=== PATIENT | male | born 1935 | race Caucasian/White ===

== ENCOUNTER 2019-04-14 09:31 | Inpatient (IN) | payer BC ==
[~2019-04-14 09:31] MED LIST: CEFAZOLIN 2 Gram 2 GM/50 ML BAG IVPB ONE; FAMOTIDINE 20MG TABLET PO ONE; MECLIZINE 25 MG TABLET PO ONE; METOCLOPRAMIDE 10 MG TABLET PO ONE; VANCOMYCIN 1GM/200ML PREMIX 1 GM/200 ML PIGGYBACK IVPB ONE
[2019-04-14] MEDS ORDERED: RINGERS SOLUTION,LACTATED 1,000 ML IV ONE (11:39)
[2019-04-14 11:41] LABS: ABO GROUP A; ANTIBODY SCREEN NEGATIVE (NEGATIVE); RH TYPE POSITIVE
[2019-04-14] MEDS ORDERED: BUPIVACAINE 0.5% W/EPI MPF 30 ML VIAL SQ ONE (15:15)
[2019-04-14] MEDS ORDERED: GABAPENTIN 300 MG CAPSULE PO PRN (15:39)
[2019-04-14] MEDS ORDERED: DEXAMETHASONE 4 MG/ML 1ML VIAL IVP ONE (15:55)
[2019-04-14] MEDS ORDERED: ROPIVACAINE HCL (NAROPIN) /PF 5MG/ML 20ML VIAL IV ONE (15:55)
[2019-04-14] MEDS ORDERED: 0.9 % SODIUM CHLORIDE 10 ML VIAL IVP ONE (15:55)
[2019-04-14] MEDS ORDERED: TRAMADOL HCL 50 MG TABLET PO PRN (16:16)
[2019-04-14] MEDS ORDERED: BISACODYL 10 MG SUPP RC PRN (16:16)
[2019-04-14] MEDS ORDERED: ACETAMINOPHEN 325 MG TAB PO PRN (16:16)
[2019-04-14] MEDS ORDERED: AL HYDROX/MAG HYDROX 30ML UD PO PRN (16:16)
[2019-04-14] MEDS ORDERED: ONDANSETRON HCL IV 4 MG/2 ML VIAL IVP PRN (16:16)
[2019-04-14] MEDS ORDERED: NALOXONE 0.4 MG/1 ML VIAL IVP PRN (16:16)
[2019-04-14] MEDS ORDERED: KETOROLAC 30 MG/ML VIAL IVP PRN ×2 (16:16)
[2019-04-14] MEDS ORDERED: ZOLPIDEM TARTRATE 5 MG TABLET PO PRN (16:16)
[2019-04-14] MEDS ORDERED: MAGNESIUM HYDROXIDE 30 ML UDC PO PRN (16:16)
[2019-04-14] MEDS ORDERED: ACETAMINOPHEN W/ CODEINE 300MG/60MG TABLET PO PRN ×2 (16:16)
[2019-04-14] MEDS ORDERED: DIPHENHYDRAMINE HCL 25 MG CAPSULE PO PRN (16:16)
[2019-04-14] MEDS: POTASSIUM CHLORIDE/D5-0.9%NACL 20 MEQ/1,000 ML BAG IV SCH (17:05)
[2019-04-14] MEDS: HYDROCODONE/APAP 10/325 TABLET PO PRN (18:03)
[2019-04-14] MEDS: HYDROMORPHONE HCL 2 MG/ML VIAL IM PRN ×2 (18:36→19:27)
[2019-04-14] MEDS: WIXELA INH SCH (21:14)
[2019-04-14] MEDS: DOCUSATE SODIUM 100 MG CAPSULE PO SCH (21:14)
[2019-04-14] MEDS: CEFAZOLIN 2 Gram 2 GM/50 ML BAG IVPB SCH (22:32)
[2019-04-15] MEDS: POTASSIUM CHLORIDE/D5-0.9%NACL 20 MEQ/1,000 ML BAG IV SCH ×2 (01:37→10:24)
[2019-04-15] MEDS: HYDROCODONE/APAP 10/325 TABLET PO PRN ×4 (01:47→11:52)
[2019-04-15] MEDS: CEFAZOLIN 2 Gram 2 GM/50 ML BAG IVPB SCH ×2 (06:02→11:49)
[2019-04-15 06:50] LABS: HEMATOCRIT 33.1 % (42.0-52.0); HEMOGLOBIN 10.4 gm/dl (14.0-18.0)
[2019-04-15] MEDS ORDERED: PATIENT OWN MED: OMEPRAZOLE 20 MG PO SCH (07:00)
[2019-04-15 07:06] LABS: BLOOD UREA NITROGEN 16 mg/dL (8-23); CREATININE 0.6 mg/dL (0.7-1.2); EST GLOMERULAR FILTRATION RATE > 60 mL/min; GLUCOSE,RANDOM 155 mg/dL (74-109)
[2019-04-15] MEDS ORDERED: PATIENT OWN MED: ESCITALOPRAM 20 MG PO SCH (10:00)
[2019-04-15] MEDS ORDERED: FERROUS SULFATE 325 MG TAB PO SCH (10:00)
[2019-04-15] MEDS ORDERED: RIVAROXABAN 10 MG TABLET PO SCH (10:00)
[2019-04-15] MEDS ORDERED: PATIENT OWN MED: AMLODIPINE 10 MG PO SCH (10:00)
[2019-04-15] MEDS ORDERED: RAPAFLO 8 MG PO SCH (10:00)
--- NOTE | 2019-04-15 10:26 | Rehab Evaluation ---
Patient Information - Patient Information Diagnosis: L hip OA Ordered Treatment: OT Evaluate and Treat Status: Initial Evaluation Surgery: Yes (L MARVIN) Date of Surgery: 04/14/19 Past Medical/Surgical Hx: PAST MEDICAL/SURGICAL HISTORY Past Surgical History BILAT SHOULDER SX RTHA C SCOPES BILAT CATS PMH - Respiratory Hx Respiratory Disorders Yes Hx Asthma Yes: GOOD CONTROL WITH ADVAIR Hx Bronchitis Yes: NOTHING RECENT Hx Pneumonia Yes: Hx Sleep Apnea Yes Hx of CPAP Yes PMH - Cardiovascular Hx Cardiovascular Disorders Yes Hx Edema Yes: BILAT LE Hx Hypertension Yes: CONTROLLED WITH MEDS Exercise Tolerance Good PMH - Neuro Hx Neurological Disorders No PMH - GI Hx Gastrointestinal Disorders Yes Hx Gastroesophageal Reflux Yes: ON MEDS WITH GOOD CONTROL PMH - Hx Genitourinary Disorders Yes Hx Bladder Problem Yes: OVER ACTIVE BLADDER Hx Prostate Problems Yes: BPH PMH - Endocrine Hx Endocrine Disorders No PMH - Musculoskeletal Hx Musculoskeletal Disorders Yes Hx Arthritis Yes: LEFT HIP, BACK AND SHOULDERS PMH - Psych Hx Psychiatric Problems Yes Hx Anxiety Yes Hx Depression Yes PMH - Hematology/Oncology Hx Hematology/Oncology Yes Disorders Hx Bruising Yes: BRUISES EASILY Premorbid Status: Detail (Prior to surgery, the patient was independent with all ADLs and functional mobility.) Social History: Detail (The patient lives with his in a 2-story home with 1 step at the entrance and no hand-rail. His bedroom and bathroom are on the main level and he has no need to negotiate stairs to second floor. The bathroom is equipped with a walk-in shower, shower bench, and a raised toilet seat. There are no grab bars in the bathroom. He has a standard walker and a 4WW and plans to purchase a scraper loader operator prior to DCing today.) Precautions: [place], Fall, Other (WBAT L LE, posterior hip precautions) - Time With Patient Total Time Spent With Patient (Min): 25 (1 eval, 1 ADL) Treatment Procedures: Detail (OT eval: low complexity) Subjective Information - Subjective Information Per Patient (Ok to see per AARON Roa. Pt agreeable to OT eval and Tx, spouse present.) Objective Data - Pain Pain Present: No Pain Scale Used: Numeric (1 - 10) (0/10, reports he feels less pain than prior to Sx) - Mental Status Patient Orientation: Oriented x3 - Visual Perception Appears within normal limits for therapeutic activities - ROM Within normal limits (B UEs) - Strength/Tone Within normal limits (B UEs) - Coordination Appears within normal limits for therapeutic activities - Transfers Independent (Sit to/from stand from bedside chair to walker with initial verbal instruction to maintain hip precautions when sitting, progressing to MOD I with walker.) - Balance Balance Sitting: Good Balance Standing: Good (Good- during standing pant mgmt) - Sensation Intact - Gait Detail (Functional mobility within bedroom with FWW, tolerated well, no safety concerns.) - ADL's/IADL's Detail (Pt initially verbalizes 2/3 hip precautions, verbalizes 3/3 at end of session. OT educated Pt on modified technique to don pants with scraper loader operator, Pt demos good follow through. Declines education on sock aide, reporting his will assist as needed. Pt dons slip-on shoes independently. OT educated Pt on modified techniques for kitchen and bathroom safety, Pt verbalizes understanding.) Therapy Assessment - Therapy Assessment Detail (Pt tolerates eval well, demos safety awareness of hip precautions and MOD I with LB dressing. Verbalizes safe technique for home tasks with good safety awareness. No concerns re: home DC with .) Patient Education - Patient Education Teaching Topic: Equipment Use, Precautions Response: Return Demonstration, Reinforcement Needed, Verbalize Understanding Teaching Method: Discussion, Demonstration Teaching Recipient: Patient Barriers To Learning: None Problem List - Problem List Occupational Therapy Problem List: Detail (No further skilled IP OT needs identified.) Goals - Goals Occupational Therapy Goals: No further skilled IP OT needs/goals identified. Prognosis - Prognosis Good Plan - Plan Occupational Therapy Plan: No further skilled IP OT needs identified, [place] OT services. Thank you for this referral.
[2019-04-15] MEDS: WIXELA INH SCH (10:29)
[2019-04-15] MEDS: DOCUSATE SODIUM 100 MG CAPSULE PO SCH (10:32)
--- NOTE | 2019-04-15 11:39 | Rehab Evaluation ---
Patient Information - Patient Information Diagnosis: L hip OA Ordered Treatment: PT Evaluate and Treat Status: Initial Evaluation Surgery: Yes (L MARVIN) Date of Surgery: 04/14/19 Past Medical/Surgical Hx: PAST MEDICAL/SURGICAL HISTORY Past Surgical History BILAT SHOULDER SX RTHA C SCOPES BILAT CATS PMH - Respiratory Hx Respiratory Disorders Yes Hx Asthma Yes: GOOD CONTROL WITH ADVAIR Hx Bronchitis Yes: NOTHING RECENT Hx Pneumonia Yes: Hx Sleep Apnea Yes Hx of CPAP Yes PMH - Cardiovascular Hx Cardiovascular Disorders Yes Hx Edema Yes: BILAT LE Hx Hypertension Yes: CONTROLLED WITH MEDS Exercise Tolerance Good PMH - Neuro Hx Neurological Disorders No PMH - GI Hx Gastrointestinal Disorders Yes Hx Gastroesophageal Reflux Yes: ON MEDS WITH GOOD CONTROL PMH - Hx Genitourinary Disorders Yes Hx Bladder Problem Yes: OVER ACTIVE BLADDER Hx Prostate Problems Yes: BPH PMH - Endocrine Hx Endocrine Disorders No PMH - Musculoskeletal Hx Musculoskeletal Disorders Yes Hx Arthritis Yes: LEFT HIP, BACK AND SHOULDERS PMH - Psych Hx Psychiatric Problems Yes Hx Anxiety Yes Hx Depression Yes PMH - Hematology/Oncology Hx Hematology/Oncology Yes Disorders Hx Bruising Yes: BRUISES EASILY Premorbid Status: Detail (Prior to surgery, the patient was independent with all ADLs and functional mobility.) Social History: Detail (The patient lives with his in a 2-story home with 1 step at the entrance and no hand-rail. His bedroom and bathroom are on the main level and he has no need to negotiate stairs to second floor. The bathroom is equipped with a walk-in shower, shower bench, and a raised toilet seat. There are no grab bars in the bathroom. He has a standard walker and a 4WW and plans to purchase a heel caser prior to DCing today.) Precautions: [place], Fall, Other (WBAT L LE, posterior hip precautions) - Time With Patient Total Time Spent With Patient (Min): 30 Treatment Procedures: Detail (Initial Evaluation low complexity, gait training) Subjective Information - Subjective Information Per Patient (The patient had minimal complaints of pain in L hip but di not rate pain using 0-10 pain scale.) Objective Data - Mental Status Patient Orientation: Oriented x3 - Visual Perception Appears within normal limits for therapeutic activities - ROM Not within normal limits (The patient's L hip ROM is within THR precautions. All other LE AROMis WNL.) - Strength/Tone Not within normal limits (The patient's LE strength was not tested s/p surgery however is functional.) - Bed Mobility Independent (The patient was up in chair when PT arrived but did not report difficulty with supine to and from sit transfer.) - Transfers Independent (The patient was independent with sit to and stand transfer.) - Balance Balance Sitting: Good Balance Standing: Good - Sensation Intact - Gait Detail (The patient ambulated with standard walker WBAT on the L LE a distance of 100 feet x 1 independently. The patient ambulated on 3 steps with use of folded walker and one railing with supervision for safety only.) Therapy Assessment - Therapy Assessment Detail (The patient was independent with bed mobility, transfers and ambulation. The patient has met all inpt. PT goals.) Patient Education - Patient Education Teaching Topic: Exercise/Activity ( Thefollowing THR exercises were reviewed including: ankle pumps, hip abduction, heelslides, gluteal sets,quad and hamstring sets.), Precautions (The patient demonstrated good understanding and use of THR precautions.) Response: Return Demonstration Teaching Method: Discussion, Demonstration, Handout Teaching Recipient: Patient Barriers To Learning: None Problem List - Problem List Physical Therapy Problem List: Detail (Decreased L LE strength as to be expected following surgery.) Occupational Therapy Problem List: Detail (No further skilled IP OT needs id entified.) Goals - Goals Physical Therapy Goals: Pt. has met all inpatient PT goals. Occupational Therapy Goals: No further skilled IP OT needs/goals identified. Plan - Plan Physical Therapy Plan: Patient is discharged from inpatient PT and is to continue with Home PT. Occupational Therapy Plan: No further skilled IP OT needs identified, [place] OT services. Thank you for this referral.
[2019-04-15] MEDS ORDERED: KETAMINE HCL 100MG/1ML VIAL INJ ONE (13:39)
[2019-04-15] MEDS ORDERED: TRANEXAMIC ACID 1,000 MG/10 ML ML IV ONE (13:39)
[2019-04-15] MEDS ORDERED: PROPOFOL 10 MG/ML VIAL IV ONE (13:39)
[2019-04-15] MEDS ORDERED: MIDAZOLAM HCL 2MG/2ML VIAL IV ONE ×2 (13:39)
--- NOTE | 2019-04-17 13:31 | Operative Note ---
DATE OF SURGERY: 04/14/2019 PREOPERATIVE DIAGNOSIS: End-stage arthrosis of the left hip. POSTOPERATIVE DIAGNOSIS: End-stage arthrosis of the left hip. OPERATION: Cementless left total hip arthroplasty using Mo and Nephew components with a size 52 no-hole Reflection cup, a size 32 mm diameter 35- degree offset liner, a size 15 cementless standard Watchung stem with a +0 32 mm diameter cobalt chrome head. STAFF SURGEON: Antonio Singh MD [place] [employer]: Mrs. Montaguenifer Tahir ANESTHESIA: Spinal. PREPARATION: Chloraprep. INDIVIDUAL CONSIDERATIONS: None. PROCEDURE: The patient was taken to the operating room, placed supine on the operating room table. He had a successful induction of spinal anesthetic. She was then placed on her side left side up, and his left leg and hip were prepped and draped in the usual fashion. The patient had direct posterior approach to the hip. Sharp dissection carried down through skin and subcutaneous tissues. Small veins were coagulated with a Bovie. The tensor gluteal fascia was opened along the entire length of the incision, and deep retractors were placed. Short external rotators were identified, piriformis fossa removed exposing the posterior capsule. Posterior capsulectomy was performed. Hip was dislocated posteriorly. The patient had flattening of the head with advanced changes. A femoral neck cut was made just above the lesser troc about a fingerbreadth using an oscillating saw. Rim capsulectomy was performed. Starting with a 45 mm reamer to ream to the medial wall, I reamed to the introitus, 51 for a 52 cup. This seemed to be a good fit. After thorough irrigation, I impacted a size 52 no-hole Reflection cup in 20 degrees of forward flexion and 40 degrees of abduction using the extraarticular alignment guide and bony landmarks. There was solid cementless fixation. A center cap screw was placed, and after irrigation, I was impacted a 32 mm diameter 35-degree offset liner with solid cementless fication and solid position. The proximal femur was delivered into the wound, and box cutting osteotome was used to remove the proximal metaphyseal bone. Mid stem reaming was actually done to a size 15. I actually started feeling cortex between 13-14. I broached to a 15. Anteversion was dialed in to the natural angle, which is about 30 degrees. After calcar reaming, with a +0 trial I had absolute stability. Trial was removed. I irrigated out and impacted a standard-offset Watchung stem with solid cementless fixation, solid calcar contact. with a +0, I had absolute stability. Anything higher would have been tough to even get in and was too tight, and anything smaller had too much shuck and instability. With the +0, I had absolute stability. The only way to actually dislocate the hip was to pull it out with a hook. After irrigation, I dried the Elio taper, impacted a +0 32 mm diameter cobalt chrome head on the Elio taper, reduced the hip, and again similar stability. Sciatic nerve was inspected and found to be completely intact. After irrigation, hemostasis was obtained with a Bovie. I placed 1 g of tranexamic acid mixed with 30 mL of saline deep to the fascia. The fascia was then closed with a running #2 quill, subcu was closed in layers with running 0 quill, skin was closed with rohini. I then infiltrated the skin with 30 mL of 0.5% Marcaine with epinephrine prior to closure. A sterile compressive bulky HUMBLE-type dressing was applied. The patient tolerated the procedure well. Needle and sponge counts were correct. Estimated blood loss was about 500-600 mL. We will check a hemoglobin in the morning. There were no complications. [facility]
--- NOTE | 2019-04-17 13:31 | Discharge Summary ---
DATE OF ADMISSION: 04/14/2019 DATE OF DISCHARGE: 04/15/2019 DATE OF SURGERY: 04/14/2019 HISTORY: The patient is a delightful 84-year-old male who presents with end- stage arthrosis of his left hip. He was admitted after left total hip arthroplasty. Postoperatively, he did extremely well. His hospital course was unremarkable. The plan is to discharge to home in the care of his family. Home PT visiting nurse has been arranged. We will give him [place] for pain and Xarelto for DVT prophylaxis. He will take aspirin when he is done with the Xarelto. Sutures will be removed by the visiting nurse in 2 weeks. He will follow up in my office in 4 weeks. FINAL DIAGNOSIS: End-stage arthrosis of the left hip. SECONDARY DIAGNOSIS: Operative blood loss anemia. DISCHARGE CONDITION: Good. Discharge hemoglobin was 10.4. OPERATIONS AND PROCEDURES: Cemented left total knee arthroplasty. LEO
== END 2019-04-15 13:40 | disposition home or self-care (01) | DRG 470 ==
LOC: MEDSURG 10:43
PROVIDERS: ADMIT Orthopaedic Surgery; ATTEND Orthopaedic Surgery
PROC: 0SRB06A Replacement of Left Hip Joint with Oxidized Zirconium on Polyethylene Synthetic Substitute, Uncemented, Open Approach (ICD-10-PCS; principal; 2019-04-14 13:00)
DX: M16.12 Unilateral primary osteoarthritis, left hip (principal); I10 Essential (primary) hypertension; K21.9 Gastro-esophageal reflux disease without esophagitis; N32.81 Overactive bladder; J45.909 Unspecified asthma, uncomplicated; G47.33 Obstructive sleep apnea (adult) (pediatric)
CPT/HCPCS: 76942; 80048; 85014; 85018; 86850; 86900; 86901; 94640; C1776; J1885; J3370; J3480; J3490; J7120